=== PATIENT | female | born 1935 | race Caucasian/White ===

== ENCOUNTER 2022-03-17 20:23 | Inpatient (IN) | payer MEDICARE, SELFPAY ==
[2022-03-17 20:31] VITALS: BP 130/66; PULSE 74; RESP 16; TEMP 36.3; O2SAT 98; BMI 24.8
--- NOTE | 2022-03-17 20:46 | XRR_ITS ---
PROCEDURE INFORMATION: Exam: XR Chest Exam date and time: 03/17/2022 9:03 PM Age: 86 years old Clinical indication: Pain; Angina pectoris; Additional info: Cp TECHNIQUE: Imaging protocol: Radiologic exam of the chest. Views: 1 view. COMPARISON: No relevant prior studies available. FINDINGS: Lungs: Lungs are clear. Pleural spaces: There is no pleural effusion or pneumothorax. Heart/Mediastinum: Cardiomediastinal contours are unremarkable. Bones/joints: Moderate degenerative disease at the right shoulder. XR/XR chest 1V portable [id number] IMPRESSION: No acute findings.
--- NOTE | 2022-03-17 20:46 | ECG_ITS ---
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 Measurements Intervals [place] Rate: 79 P: 78 MT: 166 QRS: -48 QRSD: 134 T: 69 QT: 443 QTc: 511 Interpretive Statements SINUS RHYTHM RIGHT BUNDLE BRANCH BLOCK [120+ ms QRS DURATION, UPRIGHT V1, 40+ ms S IN I/aVL/V4/V5/V6] LEFT ANTERIOR FASCICULAR BLOCK [QRS AXIS <= -45, QR IN I, RS IN II] No previous ECG available for comparison Electronically Signed On 03-18-2022 8:08:25 CDT by Freddy Hill M.D. [email or web address]
--- NOTE | 2022-03-17 20:52 | CTR_ITS ---
PROCEDURE INFORMATION: Exam: CT Abdomen And Pelvis With Contrast Exam date and time: 03/17/2022 10:43 PM Age: 86 years old Clinical indication: Nausea and vomiting; Patient HX: C/O n/v lethargy w R abd pain; Additional info: Rlq ruq pain TECHNIQUE: Imaging protocol: Computed tomography of the abdomen and pelvis with contrast. Radiation optimization: All CT scans at this facility use at least one of these dose optimization techniques: automated exposure control; mA and/or kV adjustment per patient size (includes targeted exams where dose is matched to clinical indication); or iterative reconstruction. Contrast material: OMNI 350; Contrast volume: 95 ml; Contrast route: INTRAVENOUS (IV); COMPARISON: CR (CHEST, ) 03/17/2022 9:03 PM RADIATION DOSE METRICS: Total DLP (mGy-cm): 883.73 FINDINGS: Lungs: Lung bases are clear. Diaphragm: There is a small sliding-type hiatal hernia. Liver: The liver is normal. Gallbladder and bile ducts: There is high attenuation material within the gallbladder lumen consistent with sludge. There is no intrahepatic or extrahepatic bile duct dilation. Pancreas: There is moderate atrophy of the pancreas. Spleen: The spleen is unremarkable. Adrenal glands: 2.9 x 2.4 cm left adrenal nodule. Right adrenal gland is normal. Kidneys and ureters: There is no hydronephrosis or stones. There is a simple cyst in the left kidney. There is mild atrophy of both kidneys. Stomach and bowel: The stomach is unremarkable. The small bowel is nondilated. There is mild sigmoid colonic diverticulosis without evidence of diverticulitis. Appendix: The appendix is normal. Intraperitoneal space: There is no free air or significant intraperitoneal free fluid. Vasculature: There is moderate aortic atherosclerotic disease. The portal, splenic and superior mesenteric veins are patent. Lymph nodes: There is no lymphadenopathy in the retroperitoneum, mesentery, pelvis or inguinal regions. Urinary bladder: The urinary bladder is unremarkable. Reproductive: The uterus is absent. There is no adnexal mass or large cyst. Bones/joints: There is mild degenerative disease in the lumbar spine. Chronic L3 superior endplate compression fracture. The pelvis and hips are unremarkable. Soft tissues: The abdominal wall is intact. CT/CT abdomen pelvis w con* [id number] IMPRESSION: 1. No acute findings. 2. Left adrenal nodule. Non-emergent adrenal CT is recommended. (Reference: Marlys) 3. Incidental findings above. COMMENTS: Consistent with the [place] [employer]'s Incidental Findings Committee white paper (J Am Erin Radiol 2018): Any incidental renal lesion less than 1 cm or classified as too small to characterize, or any incidental cystic renal lesion characterized as simple-appearing, is likely benign. No follow-up imaging is recommended for these lesions per consensus recommendations based on imaging criteria. REFERENCES: Marlys PETTIT, et al. Management of Incidental Adrenal Masses: A White Paper of the ACR Incidental Findings Committee. J Am Erin Radiol. 2017;14(8):1300-9197.
[2022-03-17 21:30] VITALS: BP 162/73; PULSE 67; RESP 16; O2SAT 97
[2022-03-17 21:34] LABS: Basophils # 0.1 10^3/uL (0.0-0.1); Basophils % 0.5 %; Eosinophils # 0.1 10^3/uL (0.0-0.8); Eosinophils % 0.4 %; Hematocrit 34.2 % (37.0-47.0); Hemoglobin 11.5 g/dL (11.5-15.3); Lymphocytes # 1.8 10^3/uL (0.8-4.8); Lymphocytes % 13.9 %; Mean Corpuscular HGB Conc 33.6 g/dL (30.0-36.0); Mean Corpuscular Hemoglobin 29.6 pg (28.0-34.0); Mean Corpuscular Volume 87.9 fl (81-99); Mean Platelet Volume 11.2 fL (7.4-10.4); Monocytes # 0.4 10^3/uL (0.2-0.9); Monocytes % 3.2 %; Neutrophils # 10.45 10^3/uL (1.8-7.7); Neutrophils % 81.3 %; Nucleated Red Blood Cells % 0 %; Platelet Count 349 10^3/cmm (130-400); Red Blood Count 3.89 10^6/uL (4.1-5.3); Red Cell Distribution Width 13.9 % (12.1-15.1); White Blood Count 12.9 10^3/uL (4.0-10.0)
--- NOTE | 2022-03-17 21:37 | W.ED.CHESTPA ---
HPI - Chest Pain General: Chief Complaint: Chest Pain Stated Complaint: Chest Pains Time Seen by Provider: 03/17/22 20:42 Source: patient and family History of Present Illness: 86-year-old female who does not go to the doctor. She complained to her daughter of chest pain today. Mainly right-sided. On the way here, she began to vomit. She vomited several times. No history of fever. No cough. No shortness of breath. Her pain is improved at this point. She is not complaining of nausea. She is quite tired and a little lethargic. MD complaint: chest pain Onset (ago): hour(s) Timing of current episode: constant and now resolved (Nearly) Prior episodes: No Onset: during rest Pain location: right chest Pain radiation: none Quality: other Relieving factors: nothing Associated symptoms: Reports abdominal pain, diaphoresis, nausea and vomiting; Deny dyspnea or fever(s) Review of Systems Const: Reports: diaphoresis; Denies: fever(s) ENMT: Denies: throat pain Card: Reports: chest pain Resp: Denies: dyspnea, productive cough or non-productive cough GI: Reports: abdominal pain, nausea and vomiting; Denies: diarrhea Physical Exam Const: GENERAL APPEARANCE: cooperative, lethargic, ill appearing and frail appearing NUTRITIONAL APPEARANCE: thin ORIENTATION/CONSCIOUSNESS: Yes oriented to person, Yes oriented to place and Yes lethargic HENMT: COMMON NORMALS: normocephalic, atraumatic and Normal external nose present HEAD & SCALP: normocephalic and atraumatic FACE & SINUS: normal facial exam and face symmetric NOSE: Normal external nose present Eye: COMMON NORMALS: Equal, round and reactive pupils present and EOMs intact bilaterally PUPIL: Yes Equal, round and reactive pupils present Neck/C-Spine: GENERAL: Yes trachea midline Chest: CHEST: Yes Symmetrical chest wall rise and Yes tenderness (Right chest) Resp: COMMON NORMALS: normal respiratory effort, No use of accessory muscles and clear to auscultation bilaterally AUSCULTATION: clear to auscultation bilaterally Cardio: COMMON NORMALS: regular rate and regular rhythm RATE: regular rate RHYTHM: regular rhythm GI: COMMON NORMALS: Normal to inspection, nondistended, normoactive bowel sounds present PALPATION: Yes Tenderness to palpation present (GI) Details: RLQ Extremity: COMMON NORMALS: no pedal edema Neuro: JCARLOS COMA SCALE: document GCS findings Jcarlos coma scale eye opening: To sound [place] coma scale verbal response: Orientated Jcarlos coma scale motor response: Obey commands Jcarlos coma scale total score: 14 SENSORIUM/ORIENTATION: Yes oriented to person, Yes oriented to place and Yes lethargic Course Vital Signs: Vital signs: Vital Signs Temperature 97.4 F L 03/18/22 01:35 Pulse Rate 65 03/18/22 01:35 Respiratory Rate 18 03/18/22 01:35 Blood Pressure 176/91 03/18/22 01:35 Pulse Oximetry 98 03/18/22 01:35 MDM - Chest Pain Medical Decision Making 86-year-old lady with chest discomfort and vomiting. Chest discomfort is currently gone. She has had aspirin and Nitropaste. Blood pressure is 154/72, heart rate 72. Saturations 97% on room air. Chest x-ray is negative. EKG shows a right bundle branch block, and left fascicular block with no acute ST changes. Rate is 70. [place] is left. CT of the belly is performed due to right lower quadrant tenderness and is negative. Her delta troponin, however, is 10. She will be observed for chest pain, and indeterminate delta troponin. She will also be swabbed for COVID Lab Data : 03/17/22 21:18 03/17/22 21:18 Radiology Impressions Chest X-Ray 03/17/22 20:46 IMPRESSION: No acute findings. Abdomen/Pelvis CT 03/17/22 20:52 IMPRESSION: 1. No acute findings. 2. Left adrenal nodule. Non-emergent adrenal CT is recommended. (Reference: Marlys) 3. Incidental findings above. COMMENTS: Consistent with the [place] [employer] [employer]'s Incidental Findings Committee white paper (J Am Erin Radiol 2018): Any incidental renal lesion less than 1 cm or classified as too small to characterize, or any incidental cystic renal lesion characterized as simple-appearing, is likely benign. No follow-up imaging is recommended for these lesions per consensus recommendations based on imaging criteria. REFERENCES: Marlys PETTIT et al. Management of Incidental Adrenal Masses: A White Paper of the ACR Incidental Findings Committee. J Am Erin Radiol. 2017;14(8):1665-9063. Laboratory Results WBC 12.9 10^3/uL (4.0-10.0) H 03/17/22 21:18 RBC 3.89 10^6/uL (4.1-5.3) L 03/17/22 21:18 Hgb 11.5 g/dL (11.5-15.3) 03/17/22 21:18 Hct 34.2 % (37.0-47.0) L 03/17/22 21:18 MCV 87.9 fl (81-99) 03/17/22 21:18 MCH 29.6 pg (28.0-34.0) 03/17/22 21:18 MCHC 33.6 g/dL (30.0-36.0) 03/17/22 21:18 RDW 13.9 % (12.1-15.1) 03/17/22 21:18 Plt Count 349 10^3/cmm (130-400) 03/17/22 21:18 MPV 11.2 fL (7.4-10.4) H 03/17/22 21:18 Neut % (Auto) 81.3 % 03/17/22 21:18 Lymph % (Auto) 13.9 % 03/17/22 21:18 [place] % (Auto) 3.2 % 03/17/22 21:18 Eos % (Auto) 0.4 % 03/17/22 21:18 Baso % (Auto) 0.5 % 03/17/22 21:18 Neut # (Auto) 10.45 10^3/uL (1.8-7.7) H 03/17/22 21:18 Lymph # (Auto) 1.8 10^3/uL (0.8-4.8) 03/17/22 21:18 [place] # (Auto) 0.4 10^3/uL (0.2-0.9) 03/17/22 21:18 Eos # (Auto) 0.1 10^3/uL (0.0-0.8) 03/17/22 21:18 Baso # (Auto) 0.1 10^3/uL (0.0-0.1) 03/17/22 21:18 Nucleated RBC % (auto) 0 % 03/17/22 21:18 Nucleated RBCs # 0.0 /100WBC 03/17/22 21:18 PT 13.20 SECONDS (12.1-14.9) 03/17/22 21:18 INR 0.98 (0.8-1.2) 03/17/22 21:18 APTT 23.5 SECONDS (23.9-36.7) L 03/17/22 21:18 Sodium 141 mmol/L (136-145) 03/17/22 21:18 Potassium 3.9 mmol/L (3.5-5.1) 03/17/22 21:18 Chloride 102 mmol/L (98-107) 03/17/22 21:18 Carbon Dioxide 17 mmol/L (22-29) L 03/17/22 21:18 Anion Gap 25.9 (5-19) H 03/17/22 21:18 BUN 24 mg/dL (8-23) H 03/17/22 21:18 Creatinine 0.9 mg/dL (0.5-0.9) 03/17/22 21:18 GFR Calculation Not Reportable 03/17/22 21:18 Glucose 202 mg/dL (65-115) H 03/17/22 21:18 Calculated Osmolality 302 mOsm/kg (285-295) H 03/17/22 21:18 Calcium 9.8 mg/dL (8.5-10.5) 03/17/22 21:18 Total Bilirubin 0.3 mg/dL (0.15-1.2) 03/17/22 21:18 AST 16 U/L (0-32) 03/17/22 21:18 ALT 11 U/L (0-33) 03/17/22 21:18 Alkaline Phosphatase 69 IU/L (35-105) 03/17/22 21:18 Creatine Kinase 22 U/L (26-192) L 03/17/22 21:18 Troponin T Baseline 32 ng/L (0-10) H 03/17/22 21:18 Troponin T 120 Minute 41.89 ng/L (0-10) H 03/17/22 22:38 Delta Troponin T 9.89 ABS# (0-10) 03/17/22 22:38 C-Reactive Protein 3.0 mg/L (0.0-4.9) 03/17/22 21:18 NT-Pro-B Natriuret Pep 383 pg/mL (0-450) 03/17/22 21:18 Total Protein 7.0 g/dL (6.6-8.7) 03/17/22 21:18 Albumin 4.0 g/dL (3.5-5.2) 03/17/22 21:18 Globulin 3.0 g/dL (1.3-4.6) 03/17/22 21:18 Lipase 33 U/L (13-60) 03/17/22 21:18 Discharge Plan Discharge Patient Disposition: Placed in Observation Admit Provider: Rhina Reese Clinical Impression: Chest pain, Elevated troponin Coding Level of Care Code ED Hybrid Tester for Chg Fwd Exam Comprehensive
[2022-03-17 21:44] LABS: INR 0.98 (0.8-1.2)
[2022-03-17 21:45] LABS: Partial Thromboplastin Time 23.5 SECONDS (23.9-36.7)
[2022-03-17 22:04] LABS: Troponin(5th) Baseline 32 ng/L (0-10)
[2022-03-17 22:14] LABS: Alanine Aminotransferase 11 U/L (0-33); Alkaline Phosphatase 69 IU/L (35-105); Anion Gap 25.9 (5-19); Aspartate Amino Transferase 16 U/L (0-32); Blood Urea Nitrogen 24 mg/dL (8-23); Calcium 9.8 mg/dL (8.5-10.5); Carbon Dioxide 17 mmol/L (22-29); Chloride 102 mmol/L (98-107); Creatine Phosphokinase 22 U/L (26-192); Glucose 202 mg/dL (65-115); Lipase 33 U/L (13-60); NT Pro B Type Natriuretic Pept 383 pg/mL (0-450); Osmolality Calculated 302 mOsm/kg (285-295); Potassium 3.9 mmol/L (3.5-5.1); Sodium 141 mmol/L (136-145); Total Bilirubin 0.3 mg/dL (0.15-1.2)
[2022-03-17] MEDS: sodium chloride 0.9% 1,000 ML 999 ML IV (22:33)
--- NOTE | 2022-03-17 22:46 | ECG_ITS ---
[facility] Test Date: 2022-03-17 Pat Name: Snow Jimenez Department: Room: Gender: Female Cook Morning: : 1935 Requested By: Maik Salazar Order Number: [id number] Malika MD: Freddy Hill M.D. Measurements Intervals [place] Rate: 68 P: 74 [place]: 171 QRS: -38 QRSD: 139 T: 64 QT: 459 QTc: 489 Interpretive Statements SINUS RHYTHM LEFT AXIS DEVIATION [QRS AXIS < -30] RIGHT BUNDLE BRANCH BLOCK [120+ ms QRS DURATION, UPRIGHT V1, 40+ ms S IN I/aVL/V4/V5/V6] No previous ECG available for comparison Electronically Signed On 03-18-2022 18:12:09 CDT by Freddy Hill M.D. [id number]
[2022-03-17] MEDS: iohexol 350 mg/mL 100 mL Btl IV (22:53)
[2022-03-17 23:11] LABS: Troponin 5 2HR 41.89 ng/L (0-10)
[2022-03-17 23:15] LABS: Troponin 5 2HR Delta 9.89 ABS# (0-10)
[2022-03-18] VITALS (45 sets, daily range): BP systolic 117–176; BP diastolic 52–100; PULSE 47–68; RESP 0–18; TEMP 36.3–37; O2SAT 93–98
[2022-03-18] MEDS: nitroglycerin 1 gm/inch oint Pkt 1 INCH TOPICAL (00:15)
[2022-03-18] MEDS: aspirin 325 mg Tablet PO (00:15)
[2022-03-18 02:10] LABS: Adenovirus Not Detected (NOT DETECT); Chlamydia Pneumoniae Not Detected (NOT DETECT); Coronavirus 229E,HKU1,NL63,OC4 Not Detected (NOT DETECT); Human Metapneumovirus Not Detected (NOT DETECT); Human Rhinovirus/Enterovirus Not Detected (NOT DETECT); Influenza A Not Detected (NOT DETECT); Influenza A H1 Not Detected (NOT DETECT); Influenza A H1-2009 Not Detected (NOT DETECT); Influenza A H3 Not Detected (NOT DETECT); Influenza B Not Detected (NOT DETECT); Mycoplasma Pneumoniae Not Detected (NOT DETECT); Parainfluenza Virus Type 1 Not Detected (NOT DETECT); Parainfluenza Virus Type 2 Not Detected (NOT DETECT); Parainfluenza Virus Type 3 Not Detected (NOT DETECT); Parainfluenza Virus Type 4 Not Detected (NOT DETECT); Respiratory Syncytial Virus A Not Detected (NOT DETECT); Respiratory Syncytial Virus B Not Detected (NOT DETECT); SARS-COV-2 Not Detected (NOT DETECT)
--- NOTE | 2022-03-18 02:46 | ECG_ITS ---
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 Measurements Intervals [place] Rate: 54 P: 58 ID: [id number] QRS: -33 QRSD: 130 T: -5 QT: 471 QTc: 446 Interpretive Statements SINUS BRADYCARDIA LEFT AXIS DEVIATION [QRS AXIS < -30] POSSIBLE RIGHT VENTRICULAR CONDUCTION DELAY [RSR (QR) IN V1/V2] SEPTAL MYOCARDIAL INFARCTION , OF INDETERMINATE AGE [40+ ms Q WAVE IN V1/V2] Compared to ECG 03/17/2022 23:01:06 Myocardial infarct finding now present Sinus rhythm no longer present Right bundle-branch block no longer present Electronically Signed On 03-18-2022 18:10:02 CDT by Freddy Hill M.D. [id number]
[2022-03-18 04:48] LABS: Troponin 5 6HR 337.3 ng/L (0-10); Troponin 5 6HR Delta 305.3 ng/L (0-12)
--- NOTE | 2022-03-18 05:02 | USCV_ITS ---
[facility] Age: 86 Gender: F : 1935 Exam Date: 03/18/2022 08:10 Ordering Phys: Rhina Reese MD Technologist: Jaguar Miller Exam Location: [facility] [place] Indication: nstemi post cath BP: 144 / 65 HR: 70 Rhythm: Sinus Technical Quality: Adequate MEASUREMENTS (Male / Female) Normal Values 2D ECHO LV Diastolic Diameter PLAX 4.1 cm 4.2 - 5.9 / 3.9 - 5.3 cm LV Systolic Diameter PLAX 2.7 cm IVS Diastolic Thickness 0.9 cm 0.6 - 1.0 / 0.6 - 0.9 cm IVS Systolic Thickness 1.4 cm LVPW Diastolic Thickness 0.9 cm 0.6 - 1.0 / 0.6 - 0.9 cm LVPW Systolic Thickness 1.1 cm LVOT Diameter 2.0 cm LV Ejection Fraction 2D Teich 62.1 % LA Diameter 4.1 cm M-MODE LV Diastolic Diameter MM 3.8 cm 4.2 - 5.9 / 3.9 - 5.3 cm LV Systolic Diameter MM 2.3 cm LV Ejection Fraction MM Teich 70.1 % IVS Diastolic Thickness MM 0.8 cm 0.6 - 1.0 / 0.6 - 0.9 cm IVS Systolic Thickness MM 1.5 cm LVPW Diastolic Thickness MM 1.0 cm 0.6 - 1.0 / 0.6 - 0.9 cm LVPW Systolic Thickness MM 1.3 cm RV Diastolic Diameter MM 1.4 cm Aortic Annulus Diameter 2.8 cm LA Ao Ratio MM 1.6 MV E Point Septal Separation 1.6 cm DOPPLER AV Peak Velocity 111.0 cm/s LVOT Peak Velocity 74.0 cm/s AV Area Cont Eq vti 1.9 cm squared AV Area Cont Eq pk 2.1 cm squared MV Area PHT 5.0 cm squared Mitral E to A Ratio 0.7 MV E' Velocity 42.0 cm/s Mitral E to MV E' Ratio 9.9 Mitral E to LV E' Lateral Ratio 11.4 Mitral E to LV E' Septal Ratio 8.9 TR Peak Velocity 266.8 cm/s TR Peak Gradient 28.5 mmHg TV Peak E Velocity 78.0 cm/s Right Atrial Pressure 3.0 mmHg Pulmonary Artery Systolic Pressu 31.5 mmHg PV Peak Velocity 94.0 cm/s FINDINGS Left Ventricle Left ventricle is normal in size. LV function is borderline normal with EF of 50%. Mild to moderate hypokinesis of inferoseptal and inferior arevalo. Grade 1 diastolic dysfunction Right Ventricle Normal in size and function Right Atrium Normal in size Left Atrium Grossly normal in size Mitral Valve Mild mitral annular calcification Aortic Valve Aortic valve is thickened. No significant stenosis or regurgitation. Tricuspid Valve Mild tricuspid regurgitation. RVSP is 40 to 45 mm normal. This is consistent with mild pulmonary hypertension Pulmonic Valve Not well-visualized Pericardium Normal Aorta Normal IVC CONCLUSIONS LV function is borderline normal with EF of 50%. Mild to moderate hypokinesis of inferoseptal and inferior arevalo. Grade 1 diastolic dysfunction. Mild mitral annular calcification Aortic valve is thickened. Mild tricuspid regurgitation. Mild pulmonary hypertension is seen. No comparison studies are available. Freddy Hill MD (Electronically Signed) Final Date: 18 March 2022 11:39 S
--- NOTE | 2022-03-18 05:04 | P.HP_ITS ---
Providers/Chief Complaint Admitting Physician: Rhina Reese MD Chief Complaint: Chest Pains History of Present Illness Snow Jimenez is a 86 year old female with PMH HTN , DM who presented to the hospital today with c/o chest pain and multiple episodes of vomiting. Describes pain as being in right side of chest, radiating into back, dull, 5/10. Nausea+, vomiting+ as associated symptoms. Initial EKG withotu acute ST-T wave changes upon arrival however some dynamic changes noticed by 3am. Troponins additionally increased from 42 at baseline to ~300 range at 6 hrs ruling in NSTEMI. She is being admitted for further care. CT abdomen and pelvis was performed due to c/o persistent vomiting has returned negative for acute abdominal pathology. Review of Systems General: Reports: 10 or more systems reviewed and unremarkable except in HPI and below Const: Denies: fever(s), chills or body aches Eyes: Denies: change in vision, blurry vision or photophobia ENMT: Reports: hoarseness; Denies: throat pain, enlarged tonsils, odynophagia or nasal congestion Card: Denies: chest pain, palpitations, irregular heart rhythm, edema, sw elling of feet/ankles, lightheadedness, pre-syncope, dyspnea on exertion or orthopnea Resp: Denies: dyspnea, productive cough, non-productive cough, wheezing, stridor, pain on inspiration, change in phlegm color, hemoptysis or chest congestion GI: Denies: abdominal pain, nausea, vomiting, hematemesis, coffee ground emesis, dysphagia, heartburn, diarrhea, constipation, GI cramping, change in stool character, hematochezia or melena : Denies: flank pain, difficulty voiding, dysuria, urinary frequency, urin [place] urgency, urinary hesitancy or hematuria Musc: Denies: neck pain, back pain, extremity pain, joint swelling, joint warmth or deformity Neuro: Denies: headache(s), numbness in extremities, weakness in extremities, sensory changes, difficulty walking, frequent falls, dizziness, vertigo, behavioral changes, Slurred speech present or seizure-like activity Psych: Denies: anxiety, depression, suicidal ideation or homicidal ideation Endo: Denies: polyuria, polydipsia, tired all the time, cold intolerance or hot flashes Kaleb/Lymph: Denies: easy bruising or easy bleeding Medications/Allergies Home Medications Medication Instructions Recorded Confirmed Last Taken Type amlodipine 10 mg tablet 10 mg PO DAILY 03/18/22 03/18/22 03/17/22 08:00 History hydrochlorothiazide 25 mg tablet 25 mg PO DAILY 03/18/22 03/18/22 03/17/22 08:00 History levothyroxine 75 mcg tablet 75 mcg PO QAM 03/18/22 03/18/22 03/17/22 07:00 History lisinopril 40 mg tablet 40 mg PO DAILY 03/18/22 03/18/22 03/17/22 08:00 History sitagliptin 50 mg-metformin ER 50 - 1,000 tab PO 2XD 03/18/22 03/18/22 03/17/22 12:00 History 1,000 mg tablet,extended release 24h mp (Janumet XR) Allergies Allergy/AdvReac Type Severity Reaction Status Date / Time No Known Allergies Allergy Verified 03/17/22 20:31 PFSH Acute PFSH: Medical History (Updated 03/18/22 @ 05:11 by Rhina Reese MD) Diabetes Hypertension Hypothyroidism Vitals/I&O/Wt Last Vital Signs Temp 97.7 F 03/18/22 03:54 Pulse 47 L 03/18/22 03:54 Resp 18 03/18/22 03:54 BP 136/52 03/18/22 03:54 Pulse Ox 97 03/18/22 03:54 03/17/22 03/17/22 03/18/22 14:59 22:59 06:59 Intake Total 1000 / 1000 Balance 1000 / 1000 Weight last 48 hrs Weight 60.419 kg Weight 69.853 kg Physical Exam Narrative: GEN: Awake, alert and oriented, no acute distress CVS: S1S2 N RS: CTA B/L all areas Abd: Soft, nt/nd , bs+ PROFESSOR 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 Abdomen/Pelvis CT 03/17/22 20:52 IMPRESSION: 1. No acute findings. 2. Left adrenal nodule. Non-emergent adrenal CT is recommended. [facility] 3. Incidental findings above. COMMENTS: Consistent with the [place] [employer]'s Incidental Findings Committee white paper (J Am Erin Radiol 2018): Any incidental renal lesion less than 1 cm or classified as too small to characterize, or any incidental cystic renal lesion characterized as simple-appearing, is likely benign. No follow-up imaging is recommended for these lesions per consensus recommendations based on imaging criteria. REFERENCES: Marlys PETTIT, et al. Management of Incidental Adrenal Masses: A White Paper of the ACR Incidental Findings Committee. J Am Erin Radiol. 2017;14(8):7777-7174. Laboratory Results WBC 12.9 10^3/uL (4.0-10.0) H 03/17/22 21:18 RBC 3.89 10^6/uL (4.1-5.3) L 03/17/22 21:18 Hgb 11.5 g/dL (11.5-15.3) 03/17/22 21:18 Hct 34.2 % (37.0-47.0) L 03/17/22 21:18 MCV 87.9 fl (81-99) 03/17/22 21:18 MCH 29.6 pg (28.0-34.0) 03/17/22 21:18 MCHC 33.6 g/dL (30.0-36.0) 03/17/22 21:18 RDW 13.9 % (12.1-15.1) 03/17/22 21:18 Plt Count 349 10^3/cmm (130-400) 03/17/22 21:18 MPV 11.2 fL (7.4-10.4) H 03/17/22 21:18 Neut % (Auto) 81.3 % 03/17/22 21:18 Lymph % (Auto) 13.9 % 03/17/22 21:18 [place] % (Auto) 3.2 % 03/17/22 21:18 Eos % (Auto) 0.4 % 03/17/22 21:18 Baso % (Auto) 0.5 % 03/17/22 21:18 Neut # (Auto) 10.45 10^3/uL (1.8-7.7) H 03/17/22 21:18 Lymph # (Auto) 1.8 10^3/uL (0.8-4.8) 03/17/22 21:18 [place] # (Auto) 0.4 10^3/uL (0.2-0.9) 03/17/22 21:18 Eos # (Auto) 0.1 10^3/uL (0.0-0.8) 03/17/22 21:18 Baso # (Auto) 0.1 10^3/uL (0.0-0.1) 03/17/22 21:18 Nucleated RBC % (auto) 0 % 03/17/22 21:18 Nucleated RBCs # 0.0 /100WBC 03/17/22 21:18 PT 13.20 SECONDS (12.1-14.9) 03/17/22 21:18 INR 0.98 (0.8-1.2) 03/17/22 21:18 APTT 23.5 SECONDS (23.9-36.7) L 03/17/22 21:18 D-Dimer 1.79 ug/mIFEU (0-0.59) H 03/18/22 04:37 Sodium 141 mmol/L (136-145) 03/17/22 21:18 Potassium 3.9 mmol/L (3.5-5.1) 03/17/22 21:18 Chloride 102 mmol/L (98-107) 03/17/22 21:18 Carbon Dioxide 17 mmol/L (22-29) L 03/17/22 21:18 Anion Gap 25.9 (5-19) H 03/17/22 21:18 BUN 24 mg/dL (8-23) H 03/17/22 21:18 Creatinine 0.9 mg/dL (0.5-0.9) 03/17/22 21:18 GFR Calculation Not Reportable 03/17/22 21:18 Glucose 202 mg/dL (65-115) H 03/17/22 21:18 Calculated Osmolality 302 mOsm/kg (285-295) H 03/17/22 21:18 Calcium 9.8 mg/dL (8.5-10.5) 03/17/22 21:18 Total Bilirubin 0.3 mg/dL (0.15-1.2) 03/17/22 21:18 AST 16 U/L (0-32) 03/17/22 21:18 ALT 11 U/L (0-33) 07/17/22 21:18 Alkaline Phosphatase 69 IU/L (35-105) 03/17/22 21:18 Creatine Kinase 22 U/L (26-192) L 03/17/22 21:18 Troponin T Baseline 32 ng/L (0-10) H 03/17/22 21:18 Troponin T 120 Minute 41.89 ng/L (0-10) H 03/17/22 22:38 Delta Troponin T 9.89 ABS# (0-10) 03/17/22 22:38 Troponin T Hi Sens 6Hr 337.3 ng/L (0-10) H 03/18/22 04:11 Troponin T Hi Sens 6Hr Delta 305.3 ng/L (0-12) H* 03/18/22 04:11 C-Reactive Protein 3.0 mg/L (0.0-4.9) 03/17/22 21:18 NT-Pro-B Natriuret Pep 383 pg/mL (0-450) 03/17/22 21:18 Total Protein 7.0 g/dL (6.6-8.7) 03/17/22 21:18 Albumin 4.0 g/dL (3.5-5.2) 03/17/22 21:18 Globulin 3.0 g/dL (1.3-4.6) 03/17/22 21:18 Lipase 33 U/L (13-60) 03/17/22 21:18 Coronavirus 229E (PCR) Not detected (NOT DETECT) 03/18/22 00:10 SARS-CoV-2 (PCR) Not detected (NOT DETECT) 03/18/22 00:10 A&P Assessment and plan (1) NSTEMI (non-ST elevated myocardial infarction): Patient p/w chest pain and nausea/vomiting found to have NSTEMI Dynamic changes noted on serial EKGs, however does not meet criteria for STEMI Tropnonin delta at 6 hrs returned at ~300 Aspirin 325mg given in ER Start Lovenox 1mg/kg q12h Additional plavix 600mg load now NPO for likely cardiac cath this morning Cardiology consult placed echocardiogram ordered ASA 81mg and atorvastatin 40mg po daily Check lipid panel and Hba1c Status: Acute Attestations Medical Necessity Statement*: >2midnight admission anticipated for NSTEMI, ongoing EKG changes, likely cardiac cath Coding Level of Care Code Acute Hand Tube Winder for Chg Fwd Diagnoses NSTEMI (non-ST elevated myocardial infarction) I21.4
[2022-03-18 05:08] LABS: D Dimer 1.79 ug/mIFEU (0-0.59)
[2022-03-18] MEDS: clopidogrel 300 mg Tablet 600 MG PO (05:24)
[2022-03-18] MEDS: levothyroxine 75 mcg Tablet PO (05:24)
[2022-03-18] MEDS: enoxaparin 60 mg/0.6 mL Syringe SUBCUT (05:24)
[2022-03-18 05:29] LABS: Chol HDL Ratio 3.52 mg/dL (0.0-4.40); Cholesterol 148 mg/dL (0-200); HDL Cholesterol 42 mg/dL (60-100); LDL Cholesterol Calculated 96 mg/dL (50-129); LDL HDL Ratio 2.29 RATIO (0.00-3.22); Triglycerides 48 mg/dL (0-150)
[2022-03-18 05:36] LABS: Estmated Average Glucose 105; Hemoglobin A1C 5.3 % (4.0-6.0)
--- NOTE | 2022-03-18 06:12 | PM.CONSULT ---
Providers/Reason For Consult Consulting Physician/Specialty*: Freddy Hill MD/Cardiology Reason for Consult*: NSTEMI Requesting Physician: Dr Hill Attending Physician: Rhina Reese MD History of Present Illness History of Present Illness Snow Jimenez is a 86 year old female with past medical history of hypertension, diabetes who had presented to the hospital with chest discomfort and nausea. She also had multiple episodes of vomiting. Pain was on the right side of the chest and radiating to the back. EKG showed dynamic ST-T wave changes however no ST elevation. Initial troponin was 42 which trended up to about 300 at 6 hours. She was put on NSTEMI protocol. Review of Systems General: Reports: 10 or more systems reviewed and unremarkable except in HPI and below Const: Denies: fever(s), chills or body aches Eyes: Denies: change in vision, blurry vision or photophobia ENMT: Reports: hoarseness; Denies: throat pain, enlarged tonsils, odynophagia or nasal congestion Card: Reports: chest pain and dyspnea on exertion; Denies: palpitations, irregular heart rhythm, edema, swelling of feet/ankles, lightheadedness, pre-syncope or orthopnea Resp: Denies: dyspnea, productive cough, non-productive cough, wheezing, stridor, pain on inspiration, change in phlegm color, hemoptysis or chest congestion GI: Reports: nausea and vomiting; Denies: abdominal pain, hematemesis, coffee ground emesis, dysphagia, heartburn, diarrhea, constipation, GI cramping, change in stool character, hematochezia or melena : Denies: flank pain, difficulty voiding, dysuria, urinary frequency, urinary urgency, urinary hesitancy or hematuria Musc: Denies: neck pain, back pain, extremity pain, joint swelling, joint warmth or deformity Neuro: Denies: headache(s), numbness in extremities, weakness in extremities, sensory changes, difficulty walking, frequent falls, dizziness, vertigo, behavioral changes, Slurred speech present or seizure-like activity Psych: Denies: anxiety, depression, suicidal ideation or homicidal ideation Endo: Denies: polyuria, polydipsia, tired all the time, cold intolerance or hot flashes Kaleb/Lymph: Denies: easy bruising or easy bleeding Medications/Allergies Home Medications Medication Instructions Recorded Confirmed Last Taken Type amlodipine 10 mg tablet 10 mg PO DAILY 03/18/22 03/18/22 03/17/22 08:00 History hydrochlorothiazide 25 mg tablet 25 mg PO DAILY 03/18/22 03/18/22 03/17/22 08:00 History levothyroxine 75 mcg tablet 75 mcg PO QAM 03/18/22 03/18/22 03/17/22 07:00 History lisinopril 40 mg tablet 40 mg PO DAILY 03/18/22 03/18/22 03/17/22 08:00 History sitagliptin 50 mg-metformin ER 50 - 1,000 tab PO 2XD 03/18/22 03/18/22 03/17/22 12:00 History 1,000 mg tablet,extended release 24h mp (Janumet XR) Allergies Allergy/AdvReac Type Severity Reaction Status Date / Time No Known Allergies Allergy Verified 03/17/22 20:31 Current Medications Generic Name Dose Route Start Last Admin Trade Name Freq PRN Reason Stop Dose Admin Enoxaparin Sodium 60 mg 03/18/22 06:00 03/18/22 05:24 Enoxaparin 60 Mg/0.6 Ml Syringe SUBCUT 60 mg Q12H CLAIRE Administration Levothyroxine Sodium 75 mcg 03/18/22 06:00 03/18/22 05:24 Levothyroxine 75 Mcg Tablet PO 75 mcg QAM CLAIRE Administration PFSH Acute PFSH: Medical History (Updated 03/19/22 @ 09:25 by Freddy Hill M.D) Diabetes Hypertension Hypothyroidism Vitals/I&O/Wt Last Vital Signs Temp 97.7 F 03/18/22 03:54 Pulse 47 L 03/18/22 03:54 Resp 18 03/18/22 03:54 BP 136/52 03/18/22 03:54 Pulse Ox 97 03/18/22 03:54 03/17/22 03/17/22 03/18/22 14:59 22:59 06:59 Intake Total 1000 / 1000 Balance 1000 / 1000 Weight last 48 hrs Weight 133 lb 3.2 oz Weight 154 lb Physical Exam Narrative: GENERAL: Patient is alert, awake and oriented x3. [] NECK: No jugular vein distension. [] HEENT: No cyanosis. No icterus. No pallor. [] HEART: Regular S1 and S2. No murmur, rub or gallop. [] LUNGS: Clear to auscultate bilaterally. [] ABDOMEN: Soft, nontender and nondistended. Positive bowel sounds. No guarding, rebound or tenderness. [] CENTRAL NERVOUS SYSTEM: Grossly nonfocal. [] EXTREMITIES: Lower extremities with 1+ edema bilaterally. Pulses palpable in the lower extremities, both dorsalis pedis and posterior tibial. [] Data : 03/19/22 03:41 03/19/22 03:41 A&P Assessment and plan (1) NSTEMI (non-ST elevated myocardial infarction): Status: Acute (2) Chest pain: Status: Acute (3) Hypertension: Status: Acute (4) Diabetes: Status: Acute Plan Patient presented with non-ST elevation MD. We will proceed with coronary angiogram with possible percutaneous coronary intervention. She has dementia. Her daughter is at the bedside and has consented for the procedure. Risks and benefits of the procedure have been discussed with her. Aspirin and Plavix loaded. Heparin drip. Echocardiogram ordered. Thank you for involving us with care of this patient. We will continue to follow. Please call with questions. Consult Attestations Medical Necessity Statement: Care expected to cross 2 midnights. Coding Level of Care Code Acute Precision Assembly Inspector for Jeet Pinon Diagnoses NSTEMI (non-ST elevated myocardial infarction) I21.4 Chest pain R07.9 Hypertension I10 Diabetes E11.9
--- NOTE | 2022-03-18 06:24 | XACV_ITS ---
Exam Room: 2 Ht: 168 cm Wt: 60 kg BSA: 1.68 m2 Gender: Female : 1935 Any Known Allergies: No known allergies Exam Priority: Routine Procedure(s): Procedure Description: Diagnostic procedure Procedure Description: PCI procedure Procedure Description: Drug Eluting Coronary Stent Procedure Description: PTCA Procedure Description: Coronary Angiography Diagnostic Cath Status: Urgent Diagnostic Findings * Left Main is a short vessel and has no significant disease. * Circumflex has no significant disease. OM1 is a large sized vessel and has proximal 60% stenosis. In mid to distal segment it is highly tortuous and has another 60 to 70% stenosis. OM 2 is a small to medium sized vessel and has ostial 90% blockage.. * Mid Left Anterior Descending: severe 90% stenosis, RONN: 2 flow. Distal vessel has diffuse disease.. * 1st Diagonal: Moderate to severe 60% ostial stenosis, RONN: 3 flow. * Posterior Descending Right: subtotal occlusion, RONN: 1 flow. It is a small to medium sized vessel. Otherwise RCA is patent with no significant stenosis. PLV is patent. * Coronary angiography shows right dominance. PCI Status: Urgent PCI Indication: NSTE - ACS Interventional Findings * Procedure detail: We engaged RCA with a JR4 guide catheter. IV heparin was administered to maintain ACT above 250 S. We advanced a 0.014 cougar guidewire into the PDA and subtotally occluded segment was crossed with wire. Balloon angioplasty was performed with 2.0 x 12 mm noncompliant balloon. However no significant flow improvement was seen. Given small size of the vessel, we decided to treated medically. We then turned our attention to the mid LAD stenosis. XB 3.0 guide catheter was used to engage left main artery. Run-through guidewire was used to cross mid LAD stenosis and was put in distal vessel. Predilation of the lesion was performed with 2.5 x 15 mm noncompliant balloon. This was followed by placement of 2.75 x 30 mm resolute Britton drug-eluting stent. At this time final angiogram was performed that showed excellent stent expansion, no residual stenosis and RONN-3 flow. We decided to treat OM1 and OM 2 lesions medically. Patient left the Gambling Box Person in a stable condition.. * Mid Left Anterior Descendin% stenosis treated with a AB TREK 2.50X15 RX BALLOON, and MDT R LIZBETH 2.75X30 KASSI. 0% residual stenosis, RONN: 3 flow. * Posterior Descending Right: 99% stenosis treated with a AB MINI TREK 2.00X12 RX BALLOON. 0% residual stenosis, RONN: 1 flow. Conclusions 1. Severe multivessel CAD 2. . 3. Successful revascularization of mid LAD with KASSI x1. Balloon angioplasty of small to medium sized PDA vessel performed 4. however no significant flow improvement seen. Decision made to treated medically. Given resolution of chest pain, we decided to treat OM 1 and 2 lesions medically.. 5. Mid Left Anterior Descending was treated with a Balloon, and Drug Eluting Stent. 6. Posterior Descending Right was treated with a Balloon. Recommendations * Aspirin and Plavix for at least 1 year. * High intensity statin therapy. * Beta king therapy. * Outpatient cardiology follow-up in 4 weeks. Interventional RX Recommendation: PCI w/o planned CABG Diagnostic RX Recommendation: PCI w/o planned CABG Anticoagulation: Heparin Pressures Phase:Rest AO : 140 / 53 ( 81 ) @ 7:57:00 AM 109 / 67 ( 88 ) @ 7:58:00 AM Clinical Evaluation EBL: 5mL-10mL Procedural Details Procedure Consent Obtained. Pre-Procedure Time Out. Identified patient by full name and date of as verbalized by the patient/guarantor. Does the consent match the physician's order: Yes. Accurate & Complete Informed Consent: Yes. Inpatient/Outpatient History & Physical on Chart: Yes. If H&P is completed, is and addenduem needed: No. Visualize and Verify Site with Patient/Guarantor: N/A. Relevant Radiology Images available: Yes. The risks, benefits, and alternatives of sedation and/or procedure were discussed by physician. The patient agrees to continue. Procedure started. [facility] Clinical Fraility Score: 4: Vulnerable. Gambling Box Person Indications: ACS <= 24 hours. Chest Pain Symptom Assessment: Typical Angina Symptoms. Cardiovascular Instability: No. Correct patient, site and procedure confirmed by cath team. Current diagnosis: NSTEMI. PERRLA. Strong, equal hand marble setter bilaterally. Lungs clear x 5 lobes. Orientated to self only. Consent was obtained from Daughter via Dr. Hill. IV Site on Arrival: 20 gauge in the right anticubital. IV Fluids: 0.9% NaCl at KVO. 0 mL infused prior to cath lab nurse. Pre Procedural Pulses: bilateral radial was 3+. Oxygen started at 2liters/min via nasal canula. right groin was prepped with chloroprep then draped in the usual sterile fashion. right radial was prepped with chloroprep then draped in the usual sterile fashion. Physician notified. Baseline sample Acquired. HR: 67 BPM. Physician arrived. Physician scrubbed in. Immediate Pre-Procedure Time Out. Correct Patient: Yes; Correct Procedure: Yes; Correct Site: Yes; Correct Patient Position: Yes; Correct Supplies: Yes; Dried Flammable Prep: Yes; Blood Products Available: N/A;. Lidocaine 1% infiltrated to the right radial. Arterial access obtained. A 5 hong konger TIG catheter in over wire. Multiple views taken of left coronary artery. Catheter redirected to the RCA. Multiple views taken of right coronary artery. Catheter removed over the exchange glide wire. 6 hong konger JR 4 guide catheter was inserted over the wire. Bog[place] guidewire was advanced through the guide catheter to lesion in the PDA. Inflation number : 1 A AB MINI TREK 2.00X12 RX BALLOON was prepped and advanced across the R PDA , then inflated to 8 ROLLY for 0:18 seconds. Inflation number: 2 The AB MINI TREK 2.00X12 RX BALLOON was reinflated across the R PDA, to 8 ROLLY for 0:05 seconds. Inflation number: 3 The AB MINI TREK 2.00X12 RX BALLOON was reinflated across the R PDA, to 12 ROLLY for 0:27 seconds. Balloon out. Wire out. Results checked. Guide catheter out over the exchange glidewire. 6 hong konger XB 3 guide catheter was inserted over the wire. Bogata guidewire was advanced through the guide catheter and unableto cross the lesion in the mid LAD. Bogata guidewire out. Exchange glidewire in to reposition guide cath. Exchange glidewire out. Bogata guidewire was advanced through the guide catheter to lesion in the mid LAD. 300cm Runthrough guidewire was advanced through the guide catheter to lesion in the mid LAD. Bogata guidewire out. Inflation number : 1 A AB TREK 2.50X15 RX BALLOON was prepped and advanced across the Mid LAD , then inflated to 12 ROLLY for 0:07 seconds. Inflation number: 2 The AB TREK 2.50X15 RX BALLOON was reinflated across the Mid LAD, to 12 ROLLY for 0:09 seconds. Balloon out. Inflation Number : 3 A SAMSON Cordon LIZBETH 2.75X30 KASSI -Lot Number# [id number] was prepped and advanced across the Mid LAD. The stent was deployed at 14 ROLLY for 0:22 seconds. Exp 2024-03-18. Stent balloon out over wire. Results checked. Wire out. Results checked. Guide catheter out. Dr. Hill scrubbed out. A TR Band was successful obtaining hemostatsis at the Right Radial artery insertion site. TR band placed. Hemostasis obtained. Post Procedure: Pulses reassessed and unchanged. PERRLA. Strong, equal hand marble setter bilaterally. No VTE prophylaxis required. Medication's Wasted: Nitro = 49.6 mg. Medication's Wasted: Lidocaine 1% = 3 mL. Medication's Wasted: Heparin = 1000 units. Total IV fluids: 64 mL. PCI Indication: NSTE. Post-op diagnosis: Multi vessel CAD s/p PTCA of the RPDA and PCI of the mid LAD. Complications: none. Estimated blood loss: 5mL-10mL. Responsiveness - Normal response to verbal stimuli; alert and oriented to self, PERRLA. Airway - Unaffected, no intervention required; spontaneous ventilation. Circulation: W/N/L, pulses unchanged. Nausea/Vomiting: No. Procedure completed. Patient transferred by bed to 1st floor. Vital chart was stopped. Access Site Site: Right Radial artery Sheath Size: 6 Fr Hemostasis Method: TR Band Hemostasis Success: Successful Procedure Medications Start: 6:48 AM Stop: 6:48 AM Medication: Nitrogylcerin Amount: 200 mcg Route: I.A. Start: 6:49 AM Stop: 6:49 AM Medication: Versed Amount: 1 mg Route: I.V. Start: 6:49 AM Stop: 6:49 AM Medication: Fentanyl Amount: 50 mcg Route: I.V. Start: 7:12 AM Stop: 7:12 AM Medication: Versed Amount: 1 mg Route: I.V. Start: 7:23 AM Stop: 7:23 AM Medication: Fentanyl Amount: 50 mcg Route: I.V. Start: 7:28 AM Stop: 7:28 AM Medication: Versed Amount: 1 mg Route: I.V. Start: 7:29 AM Stop: 7:29 AM Medication: Nitrogylcerin Amount: 200 mcg Route: I.C. I, the attending physician, have reviewed and verified all procedure medications. Yes, all medications given per verbal order History/Risk Factors Hypertension: Yes Dyslipidemia: No Peripheral Arterial Disease (PAD): No Myocardial Infarction (MD): No Obesity: No Renal Disease: No Prior Interventions PCI: No CABG: No Valve Surgery: No Report Signatures Finalized by Freddy Hill MD on 03/27/2022 09:09 AM
--- NOTE | 2022-03-18 06:32 | PC.NURSE ---
Pt exiting unit at this time to labor gang supervisor
[2022-03-18 06:34] LABS: Thyroid Stimulating Hormone 0.56 uIU/mL (0.27-4.20)
[2022-03-18 06:37] LABS: Glucose Point of Care 163 mg/dL (70-110)
--- NOTE | 2022-03-18 06:37 | W.PM.OPSUD ---
Surgery/Procedure H&P Update DATE OF PROCEDURE: March 18, 2022 DATE H&P PERFORMED: 03/18/22 H&P UPDATE INFORMATION: I have reviewed H&P completed within last 30 days, I have examined patient prior to procedure and No changes to prior documentation PREOP DIAGNOSIS: NSTEMI PRIMARY INDICATION FOR PROCEDURE: NSTEMI PLANNED PROCEDURE: Left heart cath with possible percutaneous coronary intervention PATIENT REASSESSED PRIOR TO SEDATION, WITH NO CHANGE NOTED: Yes PHYSICAL EXAM: alert, oriented x 3, clear to auscultation bilaterally and regular rate & rhythm AIRWAY EVAL/ANESTHESIA PLAN: ASA III, Local Anesthesia, Risks, benefits & alternatives of sedation and/or procedure discussed and Patient agrees to continue as planned ADDITIONAL INFORMATION: Moderate sedation
[2022-03-18 08:07] LABS: Glucose Point of Care 161 mg/dL (70-110)
--- NOTE | 2022-03-18 08:08 | PC.NURSE ---
received patient from lab support service tech report provided by alana ROMERO patient arrousable to voice v's stable Tr Band in place no bleeding or hematoma noted
--- NOTE | 2022-03-18 09:00 | PM.MISC ---
Miscellaneous Note Note: Patient was showing signs of Wellen's syndrome Patient is gone for the coronary angiogram today Right radial artery without any hematoma No active chest pain Patient is not complaining of active complaint Looks dehydrated Abdomen soft No signs of edema Status post coronary angiogram, stent in LAD Multivessel disease, her PAD was not amenable for intervention however it showed atherosclerotic plaque lesions Start aspirin, Plavix, monitor for worsening of creatinine Plan to discharge her in next 48 hours
--- NOTE | 2022-03-18 10:26 | PC.NURSE ---
patient continues to be arousable to voice however isn't waking up enough to take po meds or intake will hold PO meds until more awake
[2022-03-18 11:36] LABS: Glucose Point of Care 147 mg/dL (70-110)
--- NOTE | 2022-03-18 13:06 | PC.NURSE ---
TR band removed at this time per protocol patient tolerated well will need reinforcement of teaching for restrictions of extremity mild bruising noted
[2022-03-18 16:44] LABS: Glucose Point of Care 135 mg/dL (70-110)
--- NOTE | 2022-03-18 19:26 | PC.NURSE ---
Received bedside report from HEATHER Stewart. Patient is s/p [facility] with right radial access. Dressing in place to site. No s/s of bleeding or hematoma formation observed. Patient resting with eyes closed. Patient responds appropriately at this time to verbal stimuli. Will continue to monitor.
--- NOTE | 2022-03-18 20:21 | PC.NURSE ---
Patient continues to be arousable to verbal stimuli. Answers questions appropriately however will not wake enough to swallow medications safely at this time. Will continue to monitor.
[2022-03-18 20:33] LABS: Glucose Point of Care 142 mg/dL (70-110)
[2022-03-18] MEDS: sodium chloride 0.9% 1,000 ML 75 ML IV (20:58)
--- NOTE | 2022-03-18 23:04 | PC.NURSE ---
Patient up to bathroom with minimum contact assist. Patient refusing food, drink or medications at this time. Bed alarm is set currently. Will continue to monitor.
[2022-03-19] VITALS (13 sets, daily range): BP systolic 95–160; BP diastolic 51–84; PULSE 62–89; RESP 0–22; TEMP 36.8–37.4; O2SAT 94–97
[2022-03-19 04:02] LABS: Basophils # 0.1 10^3/uL (0.0-0.1); Basophils % 0.4 %; Eosinophils % 0.2 %; Hematocrit 30.4 % (37.0-47.0); Hemoglobin 10.2 g/dL (11.5-15.3); Lymphocytes % 16.4 %; Mean Corpuscular HGB Conc 33.6 g/dL (30.0-36.0); Mean Corpuscular Hemoglobin 29.1 pg (28.0-34.0); Mean Corpuscular Volume 86.6 fl (81-99); Monocytes # 1.1 10^3/uL (0.2-0.9); Monocytes % 8.7 %; Nucleated Red Blood Cells % 0 %; Platelet Count 295 10^3/cmm (130-400); Red Blood Count 3.51 10^6/uL (4.1-5.3); Red Cell Distribution Width 14.1 % (12.1-15.1); White Blood Count 12.4 10^3/uL (4.0-10.0)
[2022-03-19 04:27] LABS: Alanine Aminotransferase 11 U/L (0-33); Albumin Level 3.3 g/dL (3.5-5.2); Alkaline Phosphatase 57 IU/L (35-105); Anion Gap 19.9 (5-19); Aspartate Amino Transferase 51 U/L (0-32); Blood Urea Nitrogen 19 mg/dL (8-23); Carbon Dioxide 20 mmol/L (22-29); Chloride 105 mmol/L (98-107); Globulin 2.4 g/dL (1.3-4.6); Glucose 162 mg/dL (65-115); Osmolality Calculated 298 mOsm/kg (285-295); Potassium 3.9 mmol/L (3.5-5.1); Sodium 141 mmol/L (136-145); Total Bilirubin 0.5 mg/dL (0.15-1.2); Total Protein 5.7 g/dL (6.6-8.7)
--- NOTE | 2022-03-19 05:23 | PC.NURSE ---
Patient refusing to take medication at this time. Will attempt again when patient is more awake. Will continue to monitor.
[2022-03-19 06:52] LABS: Glucose Point of Care 158 mg/dL (70-110)
--- NOTE | 2022-03-19 09:28 | PM.PN ---
Subjective Subjective: Patient is doing well. No complaints of chest pain. Vitals/I&O/Wt Last Vital Signs Temp 98.3 F 03/19/22 04:00 Pulse 69 03/19/22 08:00 Resp 13 03/19/22 08:00 BP 136/72 03/19/22 08:00 Pulse Ox 95 03/19/22 08:00 03/18/22 03/19/22 03/19/22 22:59 06:59 14:59 Intake Total 1000 / 1000 Output Total 150 / 450 Balance 850 / 550 Weight last 48 hrs Weight 133 lb 3.2 oz Weight 154 lb Physical Exam Narrative: GENERAL: Patient is alert, awake and oriented x3. [] NECK: No jugular vein distension. [] HEENT: No cyanosis. No icterus. No pallor. [] HEART: Regular S1 and S2. No murmur, rub or gallop. [] LUNGS: Clear to auscultate bilaterally. [] ABDOMEN: Soft, nontender and nondistended. Positive bowel sounds. No guarding, rebound or tenderness. [] CENTRAL NERVOUS SYSTEM: Grossly nonfocal. [] EXTREMITIES: Lower extremities with 1+ edema bilaterally. Pulses palpable in the lower extremities, both dorsalis pedis and posterior tibial. [] Data : 03/20/22 04:06 03/20/22 04:06 A&P Assessment and plan (1) NSTEMI (non-ST elevated myocardial infarction): Status: Acute (2) Chest pain: Status: Acute (3) Hypertension: Status: Acute (4) Diabetes: Status: Acute Plan Patient presented with non-ST elevation OR. Coronary angiogram demonstrated severe multivessel CAD. Subtotal occlusion of PDA was seen. It was a small sized vessel. We did balloon angioplasty. However flow was minimal. Given size of the vessel, we decided to medically manage it. Patient also had distal circumflex/OM disease. Left for medical therapy. She had severe mid LAD stenosis that was treated with KASSI x1. Continue aspirin and Plavix. Monitor renal function. If CAD worsening, may need IV fluids. Echo demonstrates overall normal LV systolic function with hypokinesis of inferior/inferoseptal arevalo. Thank you for involving us with care of this patient. We will continue to follow. Please call with questions. Attestations Medical Necessity Statement*: Care expected to cross 2 midnights. Coding Level of Care Code Acute Disease Case Manager Rn for g Fwd Diagnoses NSTEMI (non-ST elevated myocardial infarction) I21.4 Chest pain R07.9 Hypertension I10 Diabetes E11.9
[2022-03-19] MEDS: aspirin 81 mg EC Tablet PO (09:38)
[2022-03-19] MEDS: levothyroxine 75 mcg Tablet PO (09:38)
[2022-03-19] MEDS: pantoprazole DR 40 mg Tablet PO (09:38)
[2022-03-19] MEDS: amlodipine 10 mg Tablet PO (09:38)
[2022-03-19] MEDS: clopidogrel 75 mg Tablet PO (09:38)
[2022-03-19] MEDS: lisinopril 20 mg Tablet 40 MG PO (09:38)
[2022-03-19] MEDS: hydroCHLOROthiazide 25 mg Tablet PO ×2 (09:38→09:43)
[2022-03-19] MEDS: insulin lispro 100 unit/1 mL SUBCUT ×4 (09:38→21:40)
--- NOTE | 2022-03-19 11:44 | PM.PN ---
Subjective Subjective: This morning patient is complaining of midepigastric pain Currently chest pain or shortness of breath She looks dehydrated Creatinine slightly worsened Start normal saline, stop hydrochlorothiazide, she was hypotensive overnight, I have added lisinopril and normal saline at 30 cc/h we will like to monitor her 1 more day Will request KUB Vitals/I&O/Wt Last Vital Signs Temp 98.3 F 03/19/22 04:00 Pulse 69 03/19/22 08:00 Resp 13 03/19/22 08:00 BP 136/72 03/19/22 08:00 Pulse Ox 95 03/19/22 08:00 03/18/22 03/19/22 03/19/22 22:59 06:59 14:59 Intake Total 1000 / 1000 240 / 240 Output Total 150 / 450 Balance 850 / 550 240 / 240 Weight last 48 hrs Weight 60.419 kg Weight 69.853 kg Physical Exam Narrative: Patient is able to reciprocate Nonfocal neuro exam She is complaining of midepigastric pain Stated slightly tender on deep palpation otherwise no active signs of guarding rigidity or peritonitis Does look dehydrated She is awake, oriented to herself She thinks she is in [place] Cognitive impairment Saturating well on room air No active chest pain Data : 03/19/22 03:41 03/19/22 03:41 A&P Assessment and plan (1) Diabetes: Status: Acute (2) Hypertension: Status: Acute (3) NSTEMI (non-ST elevated myocardial infarction): Status: Acute (4) Chest pain: Status: Acute (5) Elevated troponin: Status: Acute Plan NSTEMI: Status post stent of LAD, has multivessel disease Please see cardiology note for further detail No active chest pain or shortness of breath Currently saturating well on room air Hypertension: Added lisinopril to amlodipine, hold hydrochlorothiazide for now Acute kidney injury after coronary arthroplasty, monitor for ELINA We will gently hydrate her with normal saline 30 cc/h Currently on consistent carb diet for type 2 diabetes She does not want to eat because of epigastric pain, I will request KUB, will give her 1 dose of GI cocktail Continue aspirin and Plavix Patient is full code Continue levothyroxine Attestations Medical Necessity Statement*: Discharge tomorrow Time Spent in Patient Care: 30 Coding Level of Care Code Acute Meat And Seafood Manager for Deacong Fwd Diagnoses Diabetes E11.9 Hypertension I10 NSTEMI (non-ST elevated myocardial infarction) I21.4 Chest pain R07.9 Elevated troponin R77.8
--- NOTE | 2022-03-19 11:46 | XRR_ITS ---
PROCEDURE INFORMATION: Exam: XR Abdomen Exam date and time: 03/19/2022 11:59 AM Age: 86 years old Clinical indication: Abdominal pain; Other: Midepigastric pain TECHNIQUE: Imaging protocol: Radiologic exam of the abdomen. Views: Frontal supine view of the abdomen. 1 View. COMPARISON: CT abdomen pelvis w con* [id number] 03/17/2022 10:43 PM FINDINGS: Gastrointestinal tract: Dense dilated gallbladder is seen in the right upper quadrant overlying the right kidney. No bowel dilation. Otherwise negative for acute GI abnormality Bones/joints: Unremarkable. the urinary tract does not show focal abnormality. Normal bilateral nephrograms and urinary bladder is seen. XR/XR KUB portable [id number] IMPRESSION: 1. Negative for acute GI abnormality. 2. Dense dilated gallbladder overlying the right kidney 3. Negative bilateral nephrograms and urinary bladder
[2022-03-19 11:55] LABS: Glucose Point of Care 178 mg/dL (70-110)
[2022-03-19] MEDS: lidocaine 2% viscous 15 ML, aluminum-mag hydrox-simethicon 30 ML, sucralfate oral liq 1 GM PO (12:33)
[2022-03-19] MEDS: sodium chloride 0.9% 1,000 ML 30 ML IV (12:34)
--- NOTE | 2022-03-19 17:01 | US_ITS ---
WS: [id number] RIGHT UPPER QUADRANT ULTRASOUND HISTORY: ruq pain COMPARISON: None available. Liver: 15.1 cm in length. Normal size liver. No bile duct dilatation or mass. Portal Vein: Normal hepatopetal flow with monophasic waveform. Gallbladder: Normally distended gallbladder. There is a large amount of shadowing from the gallbladde r that persists with patient positioning. There is also mobile sludge and debris within the gallbladd er. On a recent CT stones were identified also. No bile duct dilatation. No pericholecystic fluid. CBD: 0.4 cm Pancreas: Normal size and echogenicity. Right kidney: 10.9 cm in length. Normal size and echogenicity. No hydronephrosis or mass. Aorta and IVC: Unremarkable abdominal aorta and IVC. No ascites. US/US gall bladder [id number] IMPRESSION: 1. Cholelithiasis without evidence for acute cholecystitis. 2. No bile duct dilatation or obstruction.
[2022-03-19 17:08] LABS: Glucose Point of Care 268 mg/dL (70-110)
[2022-03-19] MEDS: acetaminophen 325 mg Tablet 650 MG PO (17:21)
[2022-03-19 20:49] LABS: Glucose Point of Care 212 mg/dL (70-110)
[2022-03-19] MEDS: atorvastatin 40 mg Tablet PO (21:40)
[2022-03-20] VITALS: BP 103/57; PULSE 83; RESP 17; TEMP 36.8; O2SAT 94
[2022-03-20 04:00] VITALS: BP 114/65; PULSE 91; RESP 16; TEMP 37.7; O2SAT 94
[2022-03-20 04:42] LABS: Basophils # 0.1 10^3/uL (0.0-0.1); Basophils % 0.3 %; Eosinophils % 0.3 %; Hematocrit 26.7 % (37.0-47.0); Hemoglobin 9.4 g/dL (11.5-15.3); Lymphocytes # 2.6 10^3/uL (0.8-4.8); Mean Corpuscular HGB Conc 35.2 g/dL (30.0-36.0); Mean Corpuscular Hemoglobin 29.6 pg (28.0-34.0); Mean Platelet Volume 11.3 fL (7.4-10.4); Monocytes # 1.8 10^3/uL (0.2-0.9); Monocytes % 12.1 %; Neutrophils # 10.62 10^3/uL (1.8-7.7); Neutrophils % 69.8 %; Nucleated Red Blood Cells % 0 %; Platelet Count 225 10^3/cmm (130-400); Red Blood Count 3.18 10^6/uL (4.1-5.3); Red Cell Distribution Width 13.8 % (12.1-15.1); White Blood Count 15.2 10^3/uL (4.0-10.0)
[2022-03-20 05:02] LABS: Alanine Aminotransferase 11 U/L (0-33); Albumin Level 2.9 g/dL (3.5-5.2); Alkaline Phosphatase 59 IU/L (35-105); Anion Gap 18.9 (5-19); Aspartate Amino Transferase 36 U/L (0-32); Blood Urea Nitrogen 27 mg/dL (8-23); Calcium 8.7 mg/dL (8.5-10.5); Carbon Dioxide 19 mmol/L (22-29); Chloride 101 mmol/L (98-107); Globulin 2.7 g/dL (1.3-4.6); Glucose 134 mg/dL (65-115); Osmolality Calculated 287 mOsm/kg (285-295); Potassium 3.9 mmol/L (3.5-5.1); Sodium 135 mmol/L (136-145); Total Bilirubin 0.6 mg/dL (0.15-1.2); Total Protein 5.6 g/dL (6.6-8.7)
[2022-03-20 05:33] VITALS: PULSE 0
[2022-03-20 06:32] LABS: Glucose Point of Care 173 mg/dL (70-110)
--- NOTE | 2022-03-20 06:45 | P.PN_ITS ---
Subjective Subjective: Low-grade fever, leukocytosis worsening, creatinine worsened Concern for contrast-induced nephropathy Gallbladder ultrasound report is pending Daughter is requesting hospice services, she was counseled by myself about home health services versus hospice, she told case management that she has opted for hospice Vitals/I&O/Wt Last Vital Signs Temp 100 F H 03/20/22 04:00 Pulse 0 L 03/20/22 05:33 Resp 16 03/20/22 04:00 BP 114/65 03/20/22 04:00 Pulse Ox 94 03/20/22 04:00 03/19/22 03/19/22 03/20/22 14:59 22:59 06:59 Intake Total 240 / 240 1480 / 1720 Balance 240 / 240 1480 / 1720 Physical Exam Narrative: Patient seems dehydrated Complaining of midepigastric pain No signs of meningitis She mostly keeps her eyes closed during conversation No signs of edema of legs Right upper quadrant tenderness on deep palpation No rigidity guarding or peritonitis Data : 03/20/22 04:06 03/20/22 04:06 A&P Assessment and plan (1) Contrast dye induced nephropathy: Status: Acute (2) Diabetes: Status: Acute (3) Hypertension: Status: Acute (4) NSTEMI (non-ST elevated myocardial infarction): Status: Acute (5) Chest pain: Status: Acute (6) Elevated troponin: Status: Acute (7) Gall bladder disease: Status: Acute Plan Contrast-induced nephropathy, creatinine is worsening after angiogram continue normal saline Low-grade fever, worsening leukocytosis concern for cholecystitis and waiting on gallbladder ultrasound today Coronary disease status post stent in LAD, she has multivessel disease, continue aspirin and Plavix I will start her on ceftriaxone Patient and her daughter has opted for hospice care at home, immigration case worker is aware DVT prophylaxis on board I will give her a small bolus as well Attestations Medical Necessity Statement*: Continue medical management Time Spent in Patient Care: 30 Coding Level of Care Code Acute Sand Filler for [facility] Fwd Diagnoses Contrast dye induced nephropathy N14.1; T50.8X5A Diabetes E11.9 Hypertension I10 NSTEMI (non-ST elevated myocardial infarction) I21.4 Chest pain R07.9 Elevated troponin R77.8 Gall bladder disease K82.9
[2022-03-20 07:04] VITALS: BP 94/52; PULSE 79; RESP 17; TEMP 36.9; O2SAT 95
[2022-03-20] MEDS: cefTRIAXone 1,000 MG in sodium chloride 0.9% (plus) 50 ML 100 MG IV (08:05)
[2022-03-20] MEDS: insulin lispro 100 unit/1 mL SUBCUT (08:06)
[2022-03-20] MEDS: pantoprazole DR 40 mg Tablet PO (08:06)
[2022-03-20] MEDS: clopidogrel 75 mg Tablet PO (08:06)
[2022-03-20] MEDS: aspirin 81 mg EC Tablet PO (08:06)
[2022-03-20] MEDS: levothyroxine 75 mcg Tablet PO (08:06)
--- NOTE | 2022-03-20 09:37 | PM.PN ---
Subjective Subjective: Patient is stable. She wants to be go hospice. No chest pain. Renal function worsening noted Vitals/I&O/Wt Last Vital Signs Temp 98.5 F 03/20/22 07:04 Pulse 79 03/20/22 07:04 Resp 17 03/20/22 07:04 BP 94/52 03/20/22 07:04 Pulse Ox 95 03/20/22 07:04 03/19/22 03/20/22 03/20/22 22:59 06:59 14:59 Intake Total 1480 / 1720 530 / 530 Balance 1480 / 1720 530 / 530 Physical Exam Narrative: GENERAL: Patient is alert, awake and oriented x3. [] NECK: No jugular vein distension. [] HEENT: No cyanosis. No icterus. No pallor. [] HEART: Regular S1 and S2. No murmur, rub or gallop. [] LUNGS: Clear to auscultate bilaterally. [] ABDOMEN: Soft, nontender and nondistended. Positive bowel sounds. No guarding, rebound or tenderness. [] CENTRAL NERVOUS SYSTEM: Grossly nonfocal. [] EXTREMITIES: Lower extremities with 1+ edema bilaterally. Pulses palpable in the lower extremities, both dorsalis pedis and posterior tibial. [] Data : 03/20/22 04:06 03/20/22 04:06 A&P Assessment and plan (1) NSTEMI (non-ST elevated myocardial infarction): (2) Chest pain: (3) Hypertension: (4) Diabetes: Plan Patient presented with non-ST elevation AL. Coronary angiogram demonstrated severe multivessel CAD. Subtotal occlusion of PDA was seen. It was a small sized vessel. We did balloon angioplasty. However flow was minimal. Given size of the vessel, we decided to medically manage it. Patient also had distal circumflex/OM disease. Left for medical therapy. She had severe mid LAD stenosis that was treated with KASSI x1. Continue aspirin and Plavix. Renal function has worsened. This is likely secondary to contrast induced nephropathy. I have recommended to stay for IV hydration but patient and family have decided to go hospice Echo demonstrates overall normal LV systolic function with hypokinesis of inferior/inferoseptal arevalo. Thank you for involving us with care of this patient. Please call with questions. Attestations Medical Necessity Statement*: Care expected to cross 2 midnights. Coding Level of Care Code Acute Special Service Representative for g Fwd Diagnoses NSTEMI (non-ST elevated myocardial infarction) I21.4 Chest pain R07.9 Hypertension I10 Diabetes E11.9
[2022-03-20 10:00] VITALS: BP 94/52; PULSE 86; RESP 22; TEMP 36.9; O2SAT 97
[2022-03-20] MEDS: acetaminophen 325 mg Tablet 650 MG PO (10:47)
[2022-03-20 11:19] VITALS: BP 110/61; PULSE 84; RESP 22; TEMP 37; O2SAT 95
[2022-03-20 11:38] LABS: Glucose Point of Care 203 mg/dL (70-110)
[2022-03-20] MEDS: lactated ringers 500 ML 999 ML IV (12:02)
--- NOTE | 2022-03-20 12:41 | P.DS_ITS ---
Discharge Providers Date of Admission: 03/18/22 00:12 Date of Discharge: March 20, 2022 Attending Provider at Admission: Rhina Reese MD Attending Provider at Discharge: Lali Raman MD Diagnoses at Discharge Discharge Diagnosis (1) Contrast dye induced nephropathy: Status: Acute (2) Diabetes: Status: Acute (3) Hypertension: Status: Acute (4) NSTEMI (non-ST elevated myocardial infarction): Status: Acute (5) Chest pain: Status: Acute (6) Elevated troponin: Status: Acute (7) Gall bladder disease: Status: Acute Reason for Visit Reason for Visit: Chest Pains Hospital Course Hospital Course He was admitted to the hospital for management of NSTEMI, she went for an angiogram by Dr. Hill, status post stent and LAD,Coronary angiogram demonstrated severe multivessel CAD.? Subtotal occlusion of PDA was seen.? It was a small sized vessel.? We did balloon angioplasty.? However flow was minimal.? Given size of the vessel, we decided to medically manage it.? Patient also had distal circumflex/OM disease.? Left for medical therapy.? She had severe mid LAD stenosis that was treated with KASSI x1. Post angiogram she developed contrast-induced nephropathy, she was complaining of mid epigastric pain, other ultrasound did show cholelithiasis without chol ecystitis. No signs of obstruction. Patient and her daughter decided to opt for hospice care at home. Secondary to recent stent I will give her dual antiplatelet therapy, low-dose metoprolol succinate, will hold KAUSHIK/ARB secondary to high creatinine, She will get services from [facility]. Daughter does not want to keep her in the hospital for 1 more day, I did tell her about the contrast-induced nephropathy and importance of monitoring of kidney function, she has opted for hospice care and would like to take her home Physical Exam Narrative: Patient seems dehydrated Complaining of midepigastric pain No signs of meningitis She mostly keeps her eyes closed during conversation No signs of edema of legs Right upper quadrant tenderness on deep palpation No rigidity guarding or peritonitis Discharge Data Studies Completed and Pending Completed Studies During Hospitalization Category Date Time Status CT abdomen pelvis w con* [id number] Urgent Cat Scan 03/17/22 20:52 Completed XR KUB portable [id number] Stat Exams 03/19/22 11:46 Completed XR chest 1V portable [id number] Stat Exams 03/17/22 20:46 Completed CV. echo complete* [id number] Routine Ultrasound 03/18/22 05:02 Completed US gall bladder [id number] Routine Ultrasound 03/19/22 17:01 Completed Pending at discharge Category Date Time Status CORPORATE TRAVEL CONSULTANT request for service Routine Exams 03/18/22 06:24 Taken Basic Metabolic Panel AM LABS Lab 03/21/22 04:00 Ordered Complete Blood Count w/Auto AM LABS Lab 03/21/22 04:00 Ordered Radiology Impressions Chest X-Ray 03/17/22 20:46 IMPRESSION: No acute findings. Abdomen/Pelvis CT 03/17/22 20:52 IMPRESSION: 1. No acute findings. 2. Left adrenal nodule. Non-emergent adrenal CT is recommended. (Reference: Marlys) 3. Incidental findings above. COMMENTS: Consistent with the [employer]'s Incidental Findings Committee white paper (J Am Erin Radiol 2018): Any incidental renal lesion less than 1 cm or classified as too small to characterize, or any incidental cystic renal lesion characterized as simple-appearing, is likely benign. No follow-up imaging is recommended for these lesions per consensus recommendations based on imaging criteria. REFERENCES: Marlys PETTIT, et al. Management of Incidental Adrenal Masses: A White Paper of the ACR Incidental Findings Committee. J Am Erin Radiol. 2017;14(8):3178-8272. KUB X-Ray 03/19/22 11:46 IMPRESSION: 1. Negative for acute GI abnormality. 2. Dense dilated gallbladder overlying the right kidney 3. Negative bilateral nephrograms and urinary bladder Gallbladder Ultrasound 03/19/22 17:01 IMPRESSION: 1. Cholelithiasis without evidence for acute cholecystitis. 2. No bile duct dilatation or obstruction. Laboratory Results WBC 15.2 10^3/uL (4.0-10.0) H 03/20/22 04:06 RBC 3.18 10^6/uL (4.1-5.3) L 03/20/22 04:06 Hgb 9.4 g/dL (11.5-15.3) L 03/20/22 04:06 Hct 26.7 % (37.0-47.0) L 03/20/22 04:06 MCV 84.0 fl (81-99) 03/20/22 04:06 MCH 29.6 pg (28.0-34.0) 03/20/22 04:06 MCHC 35.2 g/dL (30.0-36.0) 03/20/22 04:06 RDW 13.8 % (12.1-15.1) 03/20/22 04:06 Plt Count 225 10^3/cmm (130-400) 03/20/22 04:06 MPV 11.3 fL (7.4-10.4) H 03/20/22 04:06 Neut % (Auto) 69.8 % 03/20/22 04:06 Lymph % (Auto) 17.0 % 03/20/22 04:06 [place] % (Auto) 12.1 % 03/20/22 04:06 Eos % (Auto) 0.3 % 03/20/22 04:06 Baso % (Auto) 0.3 % 03/20/22 04:06 Neut # (Auto) 10.62 10^3/uL (1.8-7.7) H 03/20/22 04:06 Lymph # (Auto) 2.6 10^3/uL (0.8-4.8) 03/20/22 04:06 [place] # (Auto) 1.8 10^3/uL (0.2-0.9) H 03/20/22 04:06 Eos # (Auto) 0.0 10^3/uL (0.0-0.8) 03/20/22 04:06 Baso # (Auto) 0.1 10^3/uL (0.0-0.1) 03/20/22 04:06 Nucleated RBC % (auto) 0 % 03/20/22 04:06 Nucleated RBCs # 0.0 /100WBC 03/20/22 04:06 PT 13.20 SECONDS (12.1-14.9) 03/17/22 21:18 INR 0.98 (0.8-1.2) 03/17/22 21:18 APTT 23.5 SECONDS (23.9-36.7) L 03/17/22 21:18 D-Dimer 1.79 ug/mIFEU (0-0.59) H 03/18/22 04:37 Sodium 135 mmol/L (136-145) L 03/20/22 04:06 Potassium 3.9 mmol/L (3.5-5.1) 03/20/22 04:06 Chloride 101 mmol/L (98-107) 03/20/22 04:06 Carbon Dioxide 19 mmol/L (22-29) L 03/20/22 04:06 Anion Gap 18.9 (5-19) 03/20/22 04:06 BUN 27 mg/dL (8-23) H 03/20/22 04:06 Creatinine 2.1 mg/dL (0.5-0.9) H 03/20/22 04:06 GFR Calculation Not Reportable 03/20/22 04:06 Glucose 134 mg/dL (65-115) H 03/20/22 04:06 POC Glucose 203 mg/dL (70-110) H 03/20/22 10:47 Estimat Average Glucose 105 03/18/22 04:11 Hemoglobin A1c 5.3 % (4.0-6.0) 03/18/22 04:11 Calculated Osmolality 287 mOsm/kg (285-295) 03/20/22 04:06 Calcium 8.7 mg/dL (8.5-10.5) 03/20/22 04:06 Total Bilirubin 0.6 mg/dL (0.15-1.2) 03/20/22 04:06 AST 36 U/L (0-32) H 03/20/22 04:06 ALT 11 U/L (0-33) 03/20/22 04:06 Alkaline Phosphatase 59 IU/L (35-105) 03/20/22 04:06 Creatine Kinase 22 U/L (26-192) L 03/17/22 21:18 Troponin T Baseline 32 ng/L (0-10) H 03/17/22 21:18 Troponin T 120 Minute 41.89 ng/L (0-10) H 03/17/22 22:38 Delta Troponin T 9.89 ABS# (0-10) 03/17/22 22:38 Troponin T Hi Sens 6Hr 337.3 ng/L (0-10) H 03/18/22 04:11 Troponin T Hi Sens 6Hr Delta 305.3 ng/L (0-12) H* 03/18/22 04:11 C-Reactive Protein 3.0 mg/L (0.0-4.9) 03/17/22 21:18 NT-Pro-B Natriuret Pep 383 pg/mL (0-450) 03/17/22 21:18 Total Protein 5.6 g/dL (6.6-8.7) L 03/20/22 04:06 Albumin 2.9 g/dL (3.5-5.2) L 03/20/22 04:06 Globulin 2.7 g/dL (1.3-4.6) 03/20/22 04:06 Triglycerides 48 mg/dL (0-150) 03/18/22 04:11 Cholesterol 148 mg/dL (0-200) 03/18/22 04:11 LDL Cholesterol, Calc 96 mg/dL (50-129) 03/18/22 04:11 HDL Cholesterol 42 mg/dL (60-100) L 03/18/22 04:11 LDL/HDL Ratio 2.29 RATIO (0.00-3.22) 03/18/22 04:11 Cholesterol/HDL Ratio 3.52 mg/dL (0.0-4.40) 03/18/22 04:11 Lipase 33 U/L (13-60) 03/17/22 21:18 TSH 0.56 uIU/mL (0.27-4.20) 03/18/22 04:11 Coronavirus 229E (PCR) Not detected (NOT DETECT) 03/18/22 00:10 SARS-CoV-2 (PCR) Not detected (NOT DETECT) 03/18/22 00:10 Vitals Last Vital Signs Temp 98.6 F 03/20/22 11:19 Pulse 84 03/20/22 11:19 Resp 22 H 03/20/22 11:19 BP 110/61 03/20/22 11:19 Pulse Ox 95 03/20/22 11:19 Discharge Plan Discharge Patient Disposition: Hospice - Home Condition: Fair Prescriptions: New atorvastatin 40 mg Tablet 40 mg PO BEDTIME Qty: 90 2RF clopidogrel 75 mg Tablet 75 mg PO DAILY Qty: 90 2RF aspirin 81 mg Tablet,Delayed Release (Dr/Ec) 81 mg PO DAILY Qty: 90 2RF metoprolol succinate [Toprol XL] 25 mg tablet extended release 24 hr 12.5 mg PO DAILY Qty: 60 0RF Continued levothyroxine 75 mcg tablet 75 mcg PO QAM 0RF amlodipine 10 mg tablet 10 mg PO DAILY 0RF Discontinued Janumet XR 50-1,000 mg tablet, ER multiphase 24 hr 50 - 1,000 tab PO 2XD 0RF lisinopril 40 mg tablet 40 mg PO DAILY 0RF hydrochlorothiazide 25 mg tablet 25 mg PO DAILY 0RF Discharge Orders: Discharge Order (Routine); Ordered 03/20/22 Ordered By: Lali Raman Other Ambulatory Orders: DME: Wheelchair (Order) Location: None Selected Ordered By: Lali Raman Patient Instructions: Metoprolol (By mouth), Aspirin (By mouth), Atorvastatin (By mouth), Clopidogrel (By mouth), Hospice Care, Hospice Care (GEN) Discharge Attestations Time Spent in Discharge Care*: less than 30 min Quality Metrics Clinical Quality Measures [ No reported AMI, CVA or VTE this stay] Coding Level of Care Code Acute Chg [facility] note Diagnoses Contrast dye induced nephropathy N14.1; T50.8X5A Diabetes E11.9 Hypertension I10 NSTEMI (non-ST elevated myocardial infarction) I21.4 Chest pain R07.9 Elevated troponin R77.8 Gall bladder disease K82.9
== END 2022-03-20 14:30 | disposition hospice, home (50) | DRG 247 ==
LOC: ER 03-18 00:11 → MEDSURG 03-18 01:01 → CSU 03-18 09:41 → MEDSURG 03-18 18:43
PROVIDERS: Internal Medicine; Admitting Provider Student in an Organized Health Care Education/Training Program; Emergency Provider Emergency Medicine; Visit Provider Internal Medicine
PROC: 027034Z Dilation of Coronary Artery, One Artery with Drug-eluting Intraluminal Device, Percutaneous Approach (ICD-10-PCS; principal; 2022-03-18 06:00)
PROC: 027034Z Dilation of Coronary Artery, One Artery with Drug-eluting Intraluminal Device, Percutaneous Approach (ICD-10-PCS; 2022-03-18 06:00)
DX: I21.4 Non-ST elevation (NSTEMI) myocardial infarction (principal); N17.9 Acute kidney failure, unspecified; I25.10 Atherosclerotic heart disease of native coronary artery without angina pectoris; I10 Essential (primary) hypertension; E11.9 Type 2 diabetes mellitus without complications; E03.9 Hypothyroidism, unspecified; I95.9 Hypotension, unspecified; N14.1 Nephropathy induced by other drugs, medicaments and biological substances; T50.8X5A Adverse effect of diagnostic agents, initial encounter; K80.20 Calculus of gallbladder without cholecystitis without obstruction; Z79.84 Long term (current) use of oral hypoglycemic drugs
CPT/HCPCS: 36415; 36416; 71045; 74018; 74177; 76705; 80053; 80061; 82550; 82962; 83036; 83690; 83880; 84443; 84484; 85025; 85378; 85610; 85730; 86140; 87635; 92920; 93005; 93306; 93454; 96360; 96372; 99152; 99153; 99285; C1725; C1769; C1874; C1887; C1894; C9600; J0696; J1644; J1650; J1815; J2250; J3010; J3490; J7030; Q9967